=== PATIENT | female | born 1995 | race Caucasian/White ===

== ENCOUNTER 2019-06-04 20:07 | Emergency (ER) | payer BC ==
[~2019-06-04] VITALS: Ht 182.9 cm; Wt 117.9 kg
[~2019-06-04 20:07] MED LIST: AZITHROMYCIN; BENTYL20 MG PO; GENERESS FE CH1 EACH; GENERESS FE CH1 EACH PO; HYDROCODON-ACE1 EA10; HYDROCODON-ACE1 EAC7; LORTABELXR PO; NOHOMEMEDICATIONS; NORCO 5-325 TA1 EACH PO; PREDNISONE 20 M20 M1; PRILOSEC40 MG PO; ULTRAM 50MG TAB50 MG PO; ZPAK PO
[2019-06-04] MEDS ORDERED: AMOXICILLIN-CL1 EACH PO (20:23)
[2019-06-04 20:44] LABS: INFLUENZA A ANTIGEN Negative (Negative)
[2019-06-04 20:54] LABS: ABSOLUTE LYMPHOCYTES 1.4 thou/uL (0.8-5.3); ABSOLUTE MONOCYTES 0.6 thou/uL (0.0-1.2); ABSOLUTE NEUTROPHILS 1.3 thou/uL (1.6-8.1); BASOPHILS 0.9 %; EOSINOPHILS 0.2 %; HEMATOCRIT 35.6 % (37.0-47.0); HEMOGLOBIN 12.1 gm/dL (12.0-15.0); LYMPHOCYTES 42.9 %; MCH 28.8 pg (26.0-34.0); MCV 84.7 fL (80.0-100.0); MONOCYTES 16.8 %; MPV 8.1 fl. (7.2-11.1); NUCLEATED RBCS 0 /100WBC; PLATELET COUNT* 222 thou/uL (150-400); POLYS 39.2 %; RBC 4.21 mil/uL (4.20-5.00); RDW-CV 13.7 % (10.5-14.5); WBC 3.4 thou/uL (4.0-11.0)
[2019-06-04 20:56] LABS: CALCIUM 8.7 mg/dL (8.5-10.1); POTASSIUM 3.7 mmol/L (3.5-5.1)
[2019-06-04 21:01] LABS: ALBUMIN 3.5 g/dL (3.4-5.0); TOTAL BILIRUBIN 0.5 mg/dL (<0.1-1.0); TOTAL PROTEIN 7.8 g/dL (6.4-8.2)
[2019-06-04 21:17] LABS: URINE BILIRUBIN NEGATIVE (Negative); URINE BLOOD NEGATIVE (Negative); URINE CLARITY CLEAR; URINE COLOR YELLOW; URINE GLUCOSE-RANDOM NEGATIVE (Negative); URINE KETONES NEGATIVE (Negative); URINE LEUKOCYTES-REFLEX NEGATIVE (Negative); URINE NITRITE-REFLEX NEGATIVE (Negative); URINE PROTEIN NEGATIVE (Negative)
[2019-06-04] MEDS ORDERED: ZOFRAN ODT4 MG PO (21:55)
[2019-06-04] MEDS ORDERED: TAMIFLU75 MG PO (21:55)
[2019-06-04 22:16] VITALS: BP 122/78
== END 2019-06-04 22:18 | disposition home or self-care (01) ==
LOC: M.ERS 20:07
PROVIDERS: Emergency Medicine
DX: J11.1 Influenza due to unidentified influenza virus with other respiratory manifestations (principal); R11.2 Nausea with vomiting, unspecified; R42 Dizziness and giddiness; Z90.49 Acquired absence of other specified parts of digestive tract